=== PATIENT | male | born 1985 | race African-American/Black ===

== ENCOUNTER 2021-01-16 21:12 | Emergency (ER) | payer BC ==
[~2021-01-16] VITALS: Ht 180.3 cm; Wt 84.8 kg
[2021-01-16] MEDS ORDERED: TDAP [DIPH/PERTUSSIS/TET] 0.5 ML VIAL IM ONE ×2 (22:00→22:01)
[2021-01-16] MEDS ORDERED: LIDOCAINE HCL/PF 1% 30 ML VIAL TP ONE (22:00)
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
[2021-01-16 22:58] VITALS: BP 124/88
--- NOTE | 2021-01-16 22:59 | NUR ---
Patient discharged to home in stable condition. Written and verbal after care instructions given. Patient verbalizes understanding of instruction.
== END 2021-01-16 22:59 | disposition home or self-care (01) ==
LOC: ER 21:28
DX: S61.214A Laceration without foreign body of right ring finger without damage to nail, initial encounter (principal); W26.0XXA Contact with knife, initial encounter; Y93.G1 Activity, food preparation and clean up; Y92.89 Other specified places as the place of occurrence of the external cause; Y99.8 Other external cause status
CPT/HCPCS: 12001; 90471; 90715; 99283; J3490

== ENCOUNTER 2021-06-10 17:25 | Emergency (ER) | payer BC ==
[~2021-06-10] VITALS: Ht 177.8 cm; Wt 86.2 kg
[2021-06-10 18:22] VITALS: BP 125/78
--- NOTE | 2021-06-10 18:27 | NUR ---
SEEN AND EXAMINED BY RAY GONZALEZ
--- NOTE | 2021-06-10 18:46 | NUR ---
MEAT COOLER AT BEDSIDE FOR XRAY.
[2021-06-10] MEDS ORDERED: IBUP-1955 PO (19:22)
[2021-06-10] MEDS ORDERED: TRAM50TA2 PO (19:22)
--- NOTE | 2021-06-10 19:43 | NUR ---
Patient discharged to home in stable condition. Written and verbal after care instructions given. Patient verbalizes understanding of instruction.
== END 2021-06-10 20:21 | disposition home or self-care (01) ==
LOC: ER 17:30
DX: S49.81XA Other specified injuries of right shoulder and upper arm, initial encounter (principal); V23.9XXA Unspecified motorcycle rider injured in collision with car, pick-up truck or van in traffic accident, initial encounter; Y93.89 Activity, other specified; Y92.89 Other specified places as the place of occurrence of the external cause; Y99.8 Other external cause status
CPT/HCPCS: 71045-TC; 73030-TC